=== PATIENT | female | born 2000 | race Caucasian/White ===

== ENCOUNTER 2018-06-04 11:25 | Emergency (ER) | payer OTHER ==
[~2018-06-04] VITALS: Ht 170.2 cm; Wt 54.9 kg
--- NOTE | 2018-06-04 11:36 | NUR ---
ED Nurse Note: Pt came in from home due to bilateral hands and rash on bilateral knees x 2 days, suspects "possible allergic reaction to unknown cause". No complaint of pain. AOx4, VSS.
--- NOTE | 2018-06-04 12:44 | Emergency Room Report ---
History of Present Illness General Chief Complaint: Skin Rash/Abscess Source: Patient Present Illness HPI 17-year-old female presents to the emergency department complaining of itchy rash 2 days. Patient reports on the first day she also had some swelling of her lips which resolved on its own. Patient reports that the rash comes and goes and she describes very itchy welts that are primarily near joints and over her hands and now on her buttock area. Pt. denies fevers, chills or swollen tender lymph nodes. Denies new medications or body washes or creams. Denies swelling of tongue , throat or airway. Denies wheezing, or shortness of breath. Denies recent travel, recent illness or ill contacts. denies blisters , oral lesions, or sloughing of the skin. Allergies: Coded Allergies: No Known Allergies (Unverified , 06/04/18) Patient History Past Medical History: see triage record Past Surgical History: none Pertinent Family History: none Last Menstrual Period: 05/17/18 Now: No Reviewed Nursing Documentation: PMH: Agreed; PSxH: Agreed Nursing Documentation-PMH Past Medical History: No Stated History Review of Systems All Other Systems: negative except mentioned in HPI Physical Exam Vital Signs Date Time Temp Pulse Resp B/P (MAP) Pulse Ox O2 Delivery O2 Flow Rate FiO2 06/04/18 11:28 98.1 76 20 115/71 98 Room Air Sp02 EP Interpretation: reviewed, normal General Appearance: no apparent distress, alert, GCS 15, non-toxic Head: normocephalic, atraumatic Eyes: bilateral eye normal inspection, bilateral eye PERRL ENT: hearing grossly normal, normal voice, other - no swelling of the lips or tongue, no stridor Neck: full range of motion Respiratory: chest non-tender, lungs clear, normal breath sounds, no respiratory distress, no accessory muscle use, no wheezing, speaking full sentences Cardiovascular #1: regular rate, rhythm, no edema, normal capillary refill Musculoskeletal: back normal, gait/station normal, normal range of motion, non- tender Neurologic: alert, oriented x3, responsive, motor strength/tone normal, sensory intact, speech normal, grossly normal Psychiatric: judgement/insight normal Skin: normal color, warm/dry, well hydrated, rash - Urticarial rash over hands , ankles, knees and buttocks. no vesicles, blisters or crusting. Lymphatic: no adenopathy Medical Decision Making PA Attestation Dr. Coleman is my supervising Physician whom patient management has been discussed with. Diagnostic Impression: Primary Impression: Rash and other nonspecific skin eruption ER Course 17-year-old female presents to the emergency department complaining of itchy rash 2 days. Patient reports on the first day she also had some swelling of her lips which resolved on its own. Patient reports that the rash comes and goes and she describes very itchy welts that are primarily near joints and over her hands and now on her buttock area. Pt. denies fevers, chills or swollen tender lymph nodes. Denies new medications or body washes or creams. Denies swelling of tongue , throat or airway. Denies wheezing, or shortness of breath. Denies recent travel, recent illness or ill contacts. denies blisters , oral lesions, or sloughing of the skin. Ddx considered but are not limited to cellulitis, scabies, shingles, varicella, dermatitis, urticaria, eczema, tinea, viral exanthem, SJS Vital signs: are WNL, pt. is afebrile H&PE are most consistent with Allergic reaction with skin manifestations. will evidence of acute airway compromise or impending airway compromise or anaphylaxis. ORDERS: none required at this time, the diagnosis is clinical ED INTERVENTIONS: -IM Solu-medrol DISCHARGE: At this time pt. is stable for d/c to home. Will provide printed patient care instructions, and any necessary prescriptions. Care plan and follow up instructions have been discussed with the patient prior to discharge. Last Vital Signs Date Time Temp Pulse Resp B/P (MAP) Pulse Ox O2 Delivery O2 Flow Rate FiO2 06/04/18 11:28 98.1 76 20 115/71 98 Room Air Disposition: HOME, SELF-CARE Condition: Stable Referrals: NOT CHOSEN [facility]/MD,REFERRING (PCP) Patient Instructions: Rash Additional Instructions: Take medications as directed. 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 --Please review list of primary care clinics, if you do not already have a primary care provider Return sooner to ED if new symptoms occur, or current symptoms become worse. Do not drink alcohol, drive, or operate heavy machinery while taking Hydroxyzine / ATARAX as this may cause drowsiness. - Please note that this Emergency Department Report was dictated using [employer] machine operator technology software, occasionally this can lead to erroneous entry secondary to interpretation by the dictation equipment. Khushbu Dubose Jun 04, 2018 12:44
[2018-06-04] MEDS ORDERED: Solu-MEDROL 125mg Inj IM SCH (12:45)
[2018-06-04] MEDS ORDERED: HYDROXYZINE HCL25 M1 PO (12:47)
[2018-06-04] MEDS ORDERED: MEDROL DOSEPAK4 MG ORAL (12:47)
[2018-06-04 13:05] VITALS: BP 117/73
--- NOTE | 2018-06-04 13:06 | NUR ---
ED Nurse Note: PT LAYING PEACEFULLY IN BED IN NAD. AOX4. PRESCRIPTIONS AND DISCHARGE PAPERWORK EXPLAINED TO PT. PT VERBALIZES UNDERSTANDING AND DENIES ANY QUESTIONS AT THIS TIME. PRESCRIPTIONS AND DISCHARGE PAPERWORK GIVEN TO PT AND ID WRISTBAND REMOVED. PT WALKED OUT OF ER WITH STEADY GAIT AND ALL BELONGINGS.
== END 2018-06-04 13:06 | disposition home or self-care (01) ==
LOC: EMR 12:12
DX: R21 Rash and other nonspecific skin eruption (principal); R22.0 Localized swelling, mass and lump, head
CPT/HCPCS: 96372; 99283; J2930